=== PATIENT | female | born 1990 | race Asian ===

== ENCOUNTER 2022-05-29 19:35 | Emergency (ER) | payer MEDICAID ==
[~2022-05-29] VITALS: Ht 170.2 cm; Wt 100.5 kg
[2022-05-30] MEDS ORDERED: PSEU60TA95 MT (00:06)
[2022-05-30 00:51] VITALS: BP 124/78
== END 2022-05-30 00:53 | disposition home or self-care (01) ==
LOC: ER 19:35
DX: R05.9 Cough, unspecified (principal); Z90.49 Acquired absence of other specified parts of digestive tract; Z86.16 Personal history of COVID-19
CPT/HCPCS: 71045; 81025; 99283